=== PATIENT | female | born 1980 | race Caucasian/White ===

== ENCOUNTER 2017-03-08 18:57 | Emergency (ER) | payer OTHER ==
[2017-03-08 19:04] VITALS: BP 124/73; PULSE 93; TEMP 97.5; BMI 38.6
[2017-03-08 20:27] LABS: URINE APPEARANCE CLOUDY; URINE BILIRUBIN NEGATIVE (NEGATIVE); URINE COLOR RED; URINE GLUCOSE (UA) NEGATIVE (NEGATIVE); URINE KETONE NEGATIVE (NEGATIVE); URINE NITRITE NEGATIVE (NEGATIVE); URINE UROBILINOGEN NEGATIVE E.U./dl (0.2-1.0)
[2017-03-08 20:29] LABS: URINE BLOOD 3+ (NEGATIVE); URINE LEUK ESTERASE 1+ (NEGATIVE); URINE PROTEIN 2+ (NEGATIVE)
[2017-03-08 20:41] LABS: URINE BACTERIA FEW /hpf (NONE SEEN); URINE MUCUS FEW; URINE RBC 2603 /hpf (0-3); URINE WBC 273 /hpf (3-5)
--- NOTE | 2017-03-08 20:46 | PDOC ---
History of Present Illness - General Chief Complaint: Vaginal Bleeding Stated Complaint: Vaginal Bleeding Time Seen by Provider: 03/08/17 19:56 History Source: Patient Exam Limitations: No Limitations - History of Present Illness Initial Comments: 03/08/17 22:13 CC: 5 day h/o vaginal bleed Patient is a 36 y.o. female with no PMH who presents to our facility today c/o vaginal bleed. Patient notes she has been placing toilet paper inside her vagina as she is concerned about a smell. Patient brings a transvaginal ultrasound report from an outside institution dated yesterday (03/07) which showed no acute vaginal bleed Timing/Duration: other (2 months) Associated Symptoms: reports: denies symptoms Past History - Past Medical History Allergies/Adverse Reactions: Allergies Allergy/AdvReac Type Severity Reaction Status Date / Time No Known Allergies Allergy Verified 03/08/17 18:59 Home Medications: Ambulatory Orders Vitamins ([facility]) - 1 tab PO DAILY 03/02/14 Sulfamethoxazole/Trimethoprim [Bactrim Ds -] 1 tab PO BID #10 tablet 03/08/17 Sulfamethoxazole/Trimethoprim [Bactrim Ds -] 1 tab PO BID #10 tablet 03/08/17 Asthma: No Cancer: No Cardiac Disorders: No Diabetes: No HTN: No Seizures: No Thyroid Disease: No Other medical history: none - Reproductive History (#): 4 Para: 1 Therapeutic (s) & number: Yes Spontaneous : 2 - Psycho/Social/Smoking Cessation Hx Anxiety: No Suicidal Ideation: No Smoking Status: No Smoking History: Never smoked Have you smoked in the past 12 months: Yes Number of Cigarettes Smoked Daily: 10 Information on smoking cessation initiated: Yes 'Breaking Loose' booklet given: 03/08/17 Hx Alcohol Use: No Drug/Substance Use Hx: No Substance Use Type: None Hx Substance Use Treatment: No Review of Systems - Review of Systems Constitutional: Yes: Other (No chills, fever, malaise, weight loss) HEENTM: Yes: Other (No visual changes, hearing loss, sore throat, difficulty swallowing) Respiratory: Yes: Other (No cough, shortnes sof breath, hemoptysis, wheezing) Cardiac (ROS): Yes: Other (No chest pain, lightheadedness, ) ABD/GI: Yes: Other (No nausea, vomiting, abdominal cramping, tarry stools) : Yes: Other ((+) hematuria - "pinkish" urine; no dysuria, no increased frequency, no flank pain) Psychiatric: Yes: Other (No anxiety, no depression, no suicidial ideations, no appetite changes) All Other Systems: Reviewed and Negative *Physical Exam - Vital Signs Last Vital Signs Temp Pulse Resp BP Pulse Ox 97.5 F L 93 H 18 124/73 100 03/08/17 19:00 03/08/17 19:00 03/08/17 19:00 03/08/17 19:00 03/08/17 19:00 - Physical Exam General Appearance: Yes: Obese HEENT: positive: EOMI, ANATOLIY, Other Neck: positive: Trachea midline, Supple Respiratory/Chest: positive: Lungs Clear, Normal Breath Sounds Cardiovascular: positive: Regular Rhythm, Regular Rate, S1, S2 Gastrointestinal/Abdominal: positive: Normal Bowel Sounds, Soft Musculoskeletal: positive: Normal Inspection, CVA Tenderness Integumentary: positive: Normal Color, Dry, Warm Neurologic: positive: Fully Oriented, Alert ED Treatment Course - ADDITIONAL ORDERS Additional order review: Laboratory Results 03/08/17 03/08/17 20:21 20:19 Urine Color Red Urine Appearance Cloudy Urine pH 5.0 Urine Protein 2+ H Urine Glucose (UA) Negative Urine Ketones Negative Urine Blood 3+ H Urine Nitrite Negative Urine Bilirubin Negative Urine Urobilinogen Negative Ur Leukocyte Esterase 1+ H Urine RBC 2603 Urine WBC 273 Ur Epithelial Cells Many Urine Bacteria Few Urine Mucus Few Urine HCG, Qual Negative Medical Decision Making - Medical Decision Making 03/08/17 22:24 Differential diagnosis included UTI and neprholithiasis. UA showed 3+ blood, and 1+ leukocyte esterase. As patient had a transvaginal ultrasound dated yesterday that showed no active vaginal bleed, patient was discharged with a 5 day course of Bactrim and instructed to follow up with her PCP. Patient was also instructed to discontinue insertion of tissue paper into her vagina *DC/Admit/Observation/Transfer Diagnosis at time of Disposition: Vaginal abrasion - Discharge Dispostion Disposition: HOME Condition at time of disposition: Good Admit: No - Prescriptions Prescriptions: Sulfamethoxazole/Trimethoprim [Bactrim Ds -] 1 tab PO BID #10 tablet Sulfamethoxazole/Trimethoprim [Bactrim Ds -] 1 tab PO BID #10 tablet - Referrals Referrals: Carlo Moody MD [Primary Care Provider] - - Patient Instructions Printed Discharge Instructions: DI for Suture Removal - Attestations Physician Attestion: 03/08/17 21:42 I, Dr. Marisela Jaeger, attest that this document has been prepared under my direction and personally reviewed by me in its entirety. I further attest, that it accurately reflects all work, treatment, procedures and medical decision -making performed by me.
[2017-03-08 21:10] LABS: URINE MARIJUANA THC POSITIVE ng/ml (CUTOFF=50)
== END 2017-03-08 21:45 | disposition home or self-care (01) ==
LOC: JER 18:57
DX: N39.0 Urinary tract infection, site not specified (principal); N31.9 Neuromuscular dysfunction of bladder, unspecified; S30.814A Abrasion of vagina and vulva, initial encounter; X58.XXXA Exposure to other specified factors, initial encounter; Y93.9 Activity, unspecified
CPT/HCPCS: 80307; 81003; 81015; 84703; 99281-25

== ENCOUNTER 2021-09-20 18:10 | Emergency (ER) | payer OTHER ==
[2021-09-20 18:23] VITALS: BP 129/73; PULSE 85; TEMP 98.6; BMI 42.5
[2021-09-20 20:19] LABS: BASO % 0.6 % (0-2.0); EOS % 4.1 % (0-4.5); HEMATOCRIT 31.6 % (32.4-45.2); HEMOGLOBIN 9.5 GM/dL (10.7-15.3); LYMPH % 27.7 % (8-40); MCHC 29.9 g/dl (32.0-36.0); MEAN CELL VOLUME 66.3 fl (80-96); MONO % 6.3 % (3.8-10.2); NEUT % 61.3 % (42.8-82.8); PLATELET COUNT 247 10^3/uL (134-434); RBC 4.77 M/mm3 (3.60-5.2); RDW 19.8 % (11.6-15.6); WHITE BLOOD COUNT 6.4 K/mm3 (4.0-10.0)
[2021-09-20 20:21] LABS: MCH 19.8 pg (25.7-33.7)
[2021-09-20 20:29] LABS: CHLORIDE 108 mmol/L (98-107); SODIUM 139 mmol/L (136-145)
[2021-09-20 20:32] LABS: ALBUMIN 3.8 g/dl (3.4-5.0); ANION GAP 7 MMOL/L (8-16); BLOOD UREA NITROGEN 12.3 mg/dL (7-18); CO2 24 mmol/L (21-32); GLUCOSE,RANDOM 87 mg/dL (74-106)
[2021-09-20 20:35] LABS: CREATININE 0.6 mg/dL (0.55-1.3); SGOT/AST 11 U/L (15-37); SGPT/ALT 19 U/L (13-61)
[2021-09-20 20:37] LABS: ANISOCYTOSIS 2+; BILIRUBIN,TOTAL 0.5 mg/dL (0.2-1); MACROCYTOSIS 0; OVALOCYTE 1+; PLATELET ESTIMATE NORMAL; TEAR DROP CELLS 1+; TOT PROT 7.6 g/dl (6.4-8.2)
[2021-09-20 20:38] LABS: ALK PHOS 71 U/L (45-117)
[2021-09-20 23:22] LABS: INR 1.04 (0.83-1.09)
== END 2021-09-21 01:04 | disposition left against medical advice (07) ==
LOC: JER 18:10
DX: R07.9 Chest pain, unspecified (principal)
CPT/HCPCS: 36415; 71046-TC-FY; 80053; 82550; 84484; 84703; 85025; 85379; 85610; 85730; 93005; 93010; 99285-25

== ENCOUNTER 2021-09-25 19:52 | Emergency (ER) | payer OTHER ==
[2021-09-25 19:58] VITALS: BP 115/72; PULSE 83; TEMP 97.6; BMI 43.9
[2021-09-25] MEDS ORDERED: KETOROLAC TROMETHAMINE 30 MG/1 ML VIAL IM ONE (20:46)
[2021-09-25] MEDS ORDERED: KETOROLAC TROMETHAMINE 30 MG/1 ML VIAL ONE (20:53)
== END 2021-09-25 21:09 | disposition home or self-care (01) ==
LOC: JERFT 19:52
PROC: 3E023GC Introduction of Other Therapeutic Substance into Muscle, Percutaneous Approach (ICD-10-PCS; principal; 2021-09-25)
DX: S09.11XA Strain of muscle and tendon of head, initial encounter (principal); Y99.8 Other external cause status
CPT/HCPCS: 99284-25

== ENCOUNTER 2021-09-26 10:02 | Day surgery (SDC) | payer OTHER ==
[2021-09-26] MEDS ORDERED: FERRIC CARBOXYMALTOSE 750 MG in SODIUM CHLORIDE 250 ML IVPB ONE (11:00)
[2021-09-26 11:48] VITALS: BP 112/65; PULSE 86; TEMP 98
== END 2021-09-26 12:14 | disposition home or self-care (01) ==
LOC: FINFUSION 10:02 → FM/S 10:10 → FINFUSION 12:14
PROVIDERS: ATTEND Nurse Practitioner Family
DX: D50.9 Iron deficiency anemia, unspecified (principal)
CPT/HCPCS: 96365; J1439

== ENCOUNTER 2021-10-03 10:16 | Day surgery (SDC) | payer OTHER ==
[2021-10-03] MEDS ORDERED: FERRIC CARBOXYMALTOSE 750 MG in SODIUM CHLORIDE 250 ML IVPB ONE (11:30)
[2021-10-03 11:33] VITALS: BP 114/62; TEMP 97.8
[2021-10-03 13:01] VITALS: PULSE 64
== END 2021-10-03 12:40 | disposition home or self-care (01) ==
LOC: FINFUSION 10:16 → FM/S 10:18 → FINFUSION 12:40
PROVIDERS: ATTEND Nurse Practitioner Family
PROC: 3E033GC Introduction of Other Therapeutic Substance into Peripheral Vein, Percutaneous Approach (ICD-10-PCS; principal; 2021-10-03)
DX: D50.9 Iron deficiency anemia, unspecified (principal)
CPT/HCPCS: 81025; 96365; J1439

== ENCOUNTER 2022-08-08 15:24 | Emergency (ER) | payer OTHER ==
[2022-08-08 16:37] VITALS: TEMP 97.8; BMI 44.2
[2022-08-08] MEDS ORDERED: ACETAMINOPHEN 325 MG TABLET (FP) PO ONE (18:40)
[2022-08-08] MEDS ORDERED: METOCLOPRAMIDE HCL INJECTION 10 MG/2 ML VIAL IVPUSH ONE (18:40)
[2022-08-08] MEDS ORDERED: LACTATED RINGERS SOLUTION 1000 ML INFUS.BAG IV ONE (18:40)
[2022-08-08] MEDS ORDERED: ACETAMINOPHEN 325 MG TABLET (FP) ONE (18:43)
[2022-08-08] MEDS ORDERED: METOCLOPRAMIDE HCL INJECTION 10 MG/2 ML VIAL ONE (18:43)
[2022-08-08 18:53] LABS: BASO % 0.6 % (0-2.0); HEMATOCRIT 38.7 % (32.4-45.2); HEMOGLOBIN 12.4 GM/dL (10.7-15.3); LYMPH % 26.5 % (8-40); MEAN CELL VOLUME 81.1 fl (80-96); MEAN PLT VOLUME 8.4 fl (7.5-11.1); MONO % 4.6 % (3.8-10.2); NEUT % 63.3 % (42.8-82.8); PLATELET COUNT 222 10^3/uL (134-434); RBC 4.77 M/mm3 (3.60-5.2); RDW 15.8 % (11.6-15.6); WHITE BLOOD COUNT 5.8 K/mm3 (4.0-10.0)
[2022-08-08 18:54] VITALS: BP 127/76; PULSE 86; RESP 18
[2022-08-08 18:58] LABS: HCG,QUALITATIVE URINE Negative
[2022-08-08 18:59] LABS: EPI CELLS 11 /uL (0-25.1); HYALINE CASTS 0 /uL (0-3.1); PH,URINE 6.5 (5.0-8.0); URINE APPEARANCE CLEAR; URINE BACTERIA 89 /uL (0-1359); URINE BILIRUBIN NEGATIVE (NEGATIVE); URINE COLOR YELLOW; URINE GLUCOSE (UA) NEGATIVE (NEGATIVE); URINE KETONE NEGATIVE (NEGATIVE); URINE LEUK ESTERASE NEGATIVE (NEGATIVE); URINE NITRITE NEGATIVE (NEGATIVE); URINE PROTEIN NEGATIVE (NEGATIVE); URINE RBC 7 /uL (0-23.9); URINE UROBILINOGEN 0.2 mg/dL (0.2-1.0); URINE WBC 4 /uL (0-25.8)
[2022-08-08 19:05] LABS: INR 1.04 (0.83-1.09)
[2022-08-08 19:08] LABS: ACTIVATED PTT 31.1 SECONDS (25.2-36.5)
[2022-08-08 20:38] LABS: CALCIUM 9.1 mg/dL (8.5-10.1)
[2022-08-08 20:40] LABS: ALBUMIN 3.8 g/dl (3.4-5.0); BLOOD UREA NITROGEN 11.2 mg/dL (7-18); MAGNESIUM 2.2 mg/dL (1.8-2.4)
[2022-08-08 20:42] LABS: CREATININE 0.6 mg/dL (0.55-1.3)
[2022-08-08 20:44] LABS: BILIRUBIN,TOTAL 0.6 mg/dL (0.2-1); TOT PROT 7.4 g/dl (6.4-8.2)
[2022-08-08] MEDS ORDERED: KETOROLAC TROMETHAMINE 15 MG/ML VIAL IVPUSH ONE (21:13)
[2022-08-08] MEDS ORDERED: LIDOCAINE 5% TOPICAL PATCH TP ONE (21:13)
[2022-08-08] MEDS ORDERED: LIDOCAINE 5% TOPICAL PATCH ONE (21:21)
[2022-08-08] MEDS ORDERED: KETOROLAC TROMETHAMINE 15 MG/ML VIAL ONE (21:22)
[2022-08-08] MEDS ORDERED: LIDOCAINE PATCH REMOVAL MC SCH (22:00)
== END 2022-08-08 22:56 | disposition home or self-care (01) ==
LOC: JER 15:24
PROC: 3E0333Z Introduction of Anti-inflammatory into Peripheral Vein, Percutaneous Approach (ICD-10-PCS; principal; 2022-08-08)
PROC: 3E033GC Introduction of Other Therapeutic Substance into Peripheral Vein, Percutaneous Approach (ICD-10-PCS; 2022-08-08)
DX: R51.9 Headache, unspecified (principal); R07.9 Chest pain, unspecified
CPT/HCPCS: 0241U-QW; 36415; 70450-TC; 71045-TC-FY; 80053; 81003; 83735; 84443; 84484; 84703; 85025; 85610; 85730; 87086; 93005; 93010; 99285-25

== ENCOUNTER 2022-11-10 13:38 | Emergency (ER) | payer OTHER ==
[2022-11-10 13:44] VITALS: BP 118/73; PULSE 86; RESP 18; TEMP 98.1; BMI 44.2
[2022-11-10] MEDS ORDERED: MAG HYDROX/AL HYDROX/SIMETH -MYLANTA- ORAL SUSPENSION PO ONE (14:36)
[2022-11-10] MEDS ORDERED: SODIUM CHLORIDE 0.9% 1000 ML INFUS.BAG IV ONE (14:36)
[2022-11-10] MEDS ORDERED: FAMOTIDINE 20 MG/50 ML IVPB 20 MG/50 ML MG IVPB ONE ×2 (14:36→14:46)
[2022-11-10] MEDS ORDERED: ACETAMINOPHEN 1000 MG/100 ML BAG IVPB ONE (14:36)
[2022-11-10] MEDS ORDERED: ACETAMINOPHEN INJECTION 100 ML IVPB ONE (14:46)
[2022-11-10] MEDS ORDERED: MAG HYDROX/AL HYDROX/SIMETH 30 ML UNIT-DOSE CUP ONE (14:46)
[2022-11-10 15:39] LABS: BASO % 0.9 % (0-2.0); HEMATOCRIT 37.3 % (32.4-45.2); LYMPH % 33.2 % (8-40); MCH 24.1 pg (25.7-33.7); MEAN CELL VOLUME 75.3 fl (80-96); MEAN PLT VOLUME 8.4 fl (7.5-11.1); MONO % 4.5 % (3.8-10.2); NEUT % 56.4 % (42.8-82.8); PLATELET COUNT 262 10^3/uL (134-434); RBC 4.95 M/mm3 (3.60-5.2); RDW 16.8 % (11.6-15.6); WHITE BLOOD COUNT 5.5 K/mm3 (4.0-10.0)
[2022-11-10 15:54] LABS: BLOOD UREA NITROGEN 10.3 mg/dL (7-18); CALCIUM 9.6 mg/dL (8.5-10.1)
[2022-11-10 15:55] LABS: ALBUMIN 4.3 g/dl (3.4-5.0)
[2022-11-10 15:57] LABS: CREATININE 0.7 mg/dL (0.55-1.3)
[2022-11-10 15:59] LABS: BILIRUBIN,TOTAL 1.1 mg/dL (0.2-1); TOT PROT 8.3 g/dl (6.4-8.2)
[2022-11-10 16:53] LABS: EPI CELLS >36 /uL (0-25.1); HYALINE CASTS 1 /uL (0-3.1); PH,URINE 6.5 (5.0-8.0); URINE APPEARANCE CLEAR; URINE BACTERIA 243 /uL (0-1359); URINE BILIRUBIN NEGATIVE (NEGATIVE); URINE COLOR YELLOW; URINE GLUCOSE (UA) NEGATIVE (NEGATIVE); URINE KETONE NEGATIVE (NEGATIVE); URINE LEUK ESTERASE 1+ (NEGATIVE); URINE NITRITE NEGATIVE (NEGATIVE); URINE PROTEIN NEGATIVE (NEGATIVE); URINE RBC 12 /uL (0-23.9); URINE UROBILINOGEN 0.2 mg/dL (0.2-1.0); URINE WBC 46 /uL (0-25.8)
== END 2022-11-10 19:40 | disposition home or self-care (01) ==
LOC: JER 13:38
PROC: 3E033GC Introduction of Other Therapeutic Substance into Peripheral Vein, Percutaneous Approach (ICD-10-PCS; principal; 2022-11-10)
PROC: 3E033NZ Introduction of Analgesics, Hypnotics, Sedatives into Peripheral Vein, Percutaneous Approach (ICD-10-PCS; 2022-11-10)
DX: K80.20 Calculus of gallbladder without cholecystitis without obstruction (principal)
CPT/HCPCS: 36415; 76705-TC; 80053; 81003; 83690; 84703; 85025; 87086; 87186; 99284-25

== ENCOUNTER 2022-11-11 11:07 | Day surgery (SDC) | payer OTHER ==
[2022-11-11 11:34] VITALS: BMI 44.2
[2022-11-11] MEDS ORDERED: ONDANSETRON 4 MG/2 ML VIAL IVPUSH ONE (12:22)
[2022-11-11] MEDS ORDERED: ACETAMINOPHEN 1000 MG/100 ML BAG IVPB ONE (12:22)
[2022-11-11] MEDS ORDERED: FAMOTIDINE 20 MG/50 ML IVPB 20 MG/50 ML MG IVPB ONE ×2 (12:22→13:13)
[2022-11-11] MEDS ORDERED: LACTATED RINGERS SOLUTION 1000 ML INFUS.BAG IV ONE (12:22)
[2022-11-11] MEDS ORDERED: PIPERACILLIN/TAZOB 4.5 GM 4.5 GM in DEXTROSE 5%-WATER 100 ML IVPB ONE (12:23)
[2022-11-11] MEDS ORDERED: ONDANSETRON 4 MG/2 ML VIAL ONE (12:28)
[2022-11-11] MEDS ORDERED: ACETAMINOPHEN INJECTION 100 ML IVPB ONE (12:28)
[2022-11-11] MEDS ORDERED: PIPERACILLIN/TAZOB 4.5 GM 4.5 GM/100 ML BAG IVPB ONE (12:29)
[2022-11-11] MEDS ORDERED: METOCLOPRAMIDE HCL INJECTION 10 MG/2 ML VIAL IVPUSH ONE (12:47)
[2022-11-11] MEDS ORDERED: METOCLOPRAMIDE HCL INJECTION 10 MG/2 ML VIAL ONE (13:12)
[2022-11-11 13:35] LABS: BASO % 0.7 % (0-2.0); EOS % 4.8 % (0-4.5); HEMATOCRIT 37.3 % (32.4-45.2); HEMOGLOBIN 11.9 GM/dL (10.7-15.3); MCH 23.7 pg (25.7-33.7); MEAN CELL VOLUME 74.1 fl (80-96); MEAN PLT VOLUME 8.1 fl (7.5-11.1); MONO % 5.6 % (3.8-10.2); NEUT % 61.9 % (42.8-82.8); PLATELET COUNT 242 10^3/uL (134-434); RBC 5.03 M/mm3 (3.60-5.2); RDW 16.6 % (11.6-15.6); WHITE BLOOD COUNT 5.8 K/mm3 (4.0-10.0)
[2022-11-11 13:39] LABS: URINE APPEARANCE CLEAR; URINE BILIRUBIN NEGATIVE (NEGATIVE); URINE COLOR YELLOW; URINE GLUCOSE (UA) NEGATIVE (NEGATIVE); URINE KETONE NEGATIVE (NEGATIVE); URINE LEUK ESTERASE NEGATIVE (NEGATIVE); URINE NITRITE NEGATIVE (NEGATIVE); URINE PROTEIN NEGATIVE (NEGATIVE); URINE UROBILINOGEN 0.2 mg/dL (0.2-1.0)
[2022-11-11 13:51] LABS: HCG,QUALITATIVE URINE Negative
[2022-11-11 13:55] LABS: ALBUMIN 4.3 g/dl (3.4-5.0)
[2022-11-11 13:56] LABS: CALCIUM 9.3 mg/dL (8.5-10.1)
[2022-11-11 13:57] LABS: BLOOD UREA NITROGEN 10.7 mg/dL (7-18); MAGNESIUM 2.4 mg/dL (1.8-2.4)
[2022-11-11] MEDS ORDERED: ONDANSETRON 4 MG/2 ML VIAL IVPUSH PRN (13:59)
[2022-11-11 14:00] LABS: CREATININE 0.6 mg/dL (0.55-1.3)
[2022-11-11 14:01] LABS: TOT PROT 8.1 g/dl (6.4-8.2)
[2022-11-11] MEDS: D5-1/2NS+20 MEQ KCL - 20 MEQ/1,000 ML INFUS.BAG IV SCH (17:46)
[2022-11-11] MEDS ORDERED: LORazepam 2 MG/ML SDV VIAL IVPUSH ONE (18:28)
[2022-11-12] MEDS: D5-1/2NS+20 MEQ KCL - 20 MEQ/1,000 ML INFUS.BAG IV SCH (06:20)
[2022-11-12 08:50] LABS: BASO % 0.9 % (0-2.0); EOS % 5.9 % (0-4.5); HEMATOCRIT 35.2 % (32.4-45.2); HEMOGLOBIN 11.3 GM/dL (10.7-15.3); LYMPH % 36.1 % (8-40); MCH 24.2 pg (25.7-33.7); MEAN CELL VOLUME 75.6 fl (80-96); MEAN PLT VOLUME 8.3 fl (7.5-11.1); MONO % 5.9 % (3.8-10.2); NEUT % 51.2 % (42.8-82.8); PLATELET COUNT 241 10^3/uL (134-434); RBC 4.65 M/mm3 (3.60-5.2); WHITE BLOOD COUNT 4.8 K/mm3 (4.0-10.0)
[2022-11-12 09:00] LABS: INR 1.16 (0.83-1.09); PROTHROMBIN TIME (PATIENT) 13.4 SEC (9.7-13.0)
[2022-11-12 09:14] LABS: CALCIUM 8.8 mg/dL (8.5-10.1)
[2022-11-12 09:15] LABS: ALBUMIN 3.8 g/dl (3.4-5.0); BLOOD UREA NITROGEN 7.4 mg/dL (7-18)
[2022-11-12 09:18] LABS: CREATININE 0.6 mg/dL (0.55-1.3)
[2022-11-12 09:19] LABS: TOT PROT 7.4 g/dl (6.4-8.2)
[2022-11-12 09:20] LABS: BILIRUBIN,TOTAL 0.9 mg/dL (0.2-1)
[2022-11-12] MEDS ORDERED: PANTOPRAZOLE SODIUM 40 MG VIAL IVPUSH SCH (10:00)
[2022-11-12] MEDS ORDERED: BUPIVACAINE HCL/PF 0.5% (5MG/ML) 10 ML VIAL ONE (10:03)
[2022-11-12] MEDS ORDERED: SUCCINYLCHOLINE CHLORIDE 200 MG/10 ML SYRINGE ONE (10:34)
[2022-11-12] MEDS ORDERED: LIDOCAINE HCL/PF 2% SDV 5ML VIAL ONE (10:34)
[2022-11-12] MEDS ORDERED: ROCURONIUM BROMIDE 50 MG/5 ML SYRINGE ONE (10:34)
[2022-11-12] MEDS ORDERED: PROPOFOL 20 ML ONE (10:34)
[2022-11-12] MEDS ORDERED: MIDAZOLAM HCL 2 MG/2 ML SINGLE DOSE VIAL ONE (10:35)
[2022-11-12] MEDS ORDERED: ceFAZolin SODIUM 1 GM VIAL ONE (11:00)
[2022-11-12] MEDS ORDERED: DEXAMETHASONE SOD PHOSPHATE 4 MG/1 ML VIAL ONE (11:00)
[2022-11-12] MEDS ORDERED: ceFAZolin SODIUM 1 GM VIAL IVPB ONE ×2 (11:05)
[2022-11-12] MEDS ORDERED: ONDANSETRON 4 MG/2 ML VIAL ONE ×2 (11:56→13:03)
[2022-11-12] MEDS ORDERED: KETOROLAC TROMETHAMINE 30 MG/1 ML VIAL ONE (11:56)
[2022-11-12] MEDS ORDERED: GLYCOPYRROLATE 0.2 MG/1 ML VIAL ONE (12:15)
[2022-11-12] MEDS ORDERED: NEOSTIGMINE METHYLSULFATE 0.5 MG/1 ML - 10 ML MDV ONE (12:15)
[2022-11-12] MEDS ORDERED: BUPIVACAINE HCL/PF 0.5% (5MG/ML) 10 ML VIAL IJ ONE (12:31)
[2022-11-12] MEDS ORDERED: PROMETHAZINE HCL 25 MG/1 ML VIAL IVPB PRN ×2 (12:57→14:07)
[2022-11-12] MEDS ORDERED: ONDANSETRON 4 MG/2 ML VIAL IVPUSH PRN ×2 (12:57→14:07)
[2022-11-12] MEDS ORDERED: ACETAMINOPHEN 1000 MG/100 ML BAG IVPB ONE ×2 (12:58→13:10)
[2022-11-12] MEDS ORDERED: LACTATED RINGERS SOLUTION 1,000 ML IV SCH (13:00)
[2022-11-12] MEDS ORDERED: ACETAMINOPHEN INJECTION 100 ML IVPB ONE (13:03)
[2022-11-12] MEDS: SODIUM CHLORIDE 1,000 ML IV SCH (15:34)
[2022-11-12] MEDS: ONDANSETRON 4 MG/2 ML VIAL IVPUSH PRN ×2 (18:04→23:14)
[2022-11-12] MEDS: KETOROLAC TROMETHAMINE 30 MG/1 ML VIAL IVPUSH SCH (18:04)
[2022-11-12] MEDS: ACETAMINOPHEN 1000 MG/100 ML BAG IVPB SCH (20:33)
[2022-11-13 00:31] VITALS: RESP 18
[2022-11-13] MEDS ORDERED: oxyCODONE HCL 5 MG TABLET PO ONE (01:30)
[2022-11-13] MEDS: D5-1/2NS+20 MEQ KCL - 20 MEQ/1,000 ML INFUS.BAG IV SCH (03:50)
[2022-11-13] MEDS: ACETAMINOPHEN 1000 MG/100 ML BAG IVPB SCH ×2 (05:39→07:50)
[2022-11-13] MEDS: KETOROLAC TROMETHAMINE 30 MG/1 ML VIAL IVPUSH SCH ×2 (05:39→10:53)
[2022-11-13] MEDS: DOCUSATE SODIUM 100 MG CAPSULE (FP) PO SCH ×2 (10:53→22:25)
[2022-11-13] MEDS: PANTOPRAZOLE SODIUM 40 MG VIAL IVPUSH SCH (10:53)
[2022-11-13] MEDS: SODIUM CHLORIDE 1,000 ML IV SCH (15:10)
[2022-11-13] MEDS: SIMETHICONE 80 MG TAB.CHEW (FP) PO PRN (17:43)
[2022-11-13] MEDS ORDERED: ACETAMINOPHEN 1000 MG/100 ML BAG IVPB ONE (19:58)
[2022-11-14] MEDS: oxyCODONE HCL 5 MG TABLET PO PRN ×2 (00:54→08:16)
[2022-11-14] MEDS: SIMETHICONE 80 MG TAB.CHEW (FP) PO PRN (08:56)
[2022-11-14] MEDS: DOCUSATE SODIUM 100 MG CAPSULE (FP) PO SCH (08:59)
[2022-11-14] MEDS: PANTOPRAZOLE SODIUM 40 MG VIAL IVPUSH SCH (09:13)
[2022-11-14 10:18] VITALS: BP 139/81; PULSE 89; TEMP 98.7
== END 2022-11-14 12:00 | disposition home or self-care (01) ==
LOC: JER 11:07 → UNDOADMOB 13:25 → INTOOBSV 13:25 → JERBED 13:25 → UNDOADMOB 16:00 → JERBED 16:00 → J6S 21:00 → JERBED 21:00 → JASUSAT 11-12 10:17 → J6S 11-12 10:38 → JASUSAT 11-14 12:00
PROVIDERS: ATTEND Family Medicine
PROC: 0FT44ZZ Resection of Gallbladder, Percutaneous Endoscopic Approach (ICD-10-PCS; principal; 2022-11-12 12:00)
DX: K80.00 Calculus of gallbladder with acute cholecystitis without obstruction (principal)
CPT/HCPCS: 36415; 71046-TC-FY; 80053; 81003; 83605; 83690; 83735; 84703; 85025; 85610; 86850; 86900; 86901; 88304-TC; 93005; 93010; 94010; 94760; 99285-25; C9803-CS; U0003; U0005

== ENCOUNTER 2022-11-28 12:25 | Emergency (ER) | payer OTHER ==
[2022-11-28 12:28] VITALS: RESP 18; BMI 44.2
[2022-11-28] MEDS ORDERED: ACETAMINOPHEN 1000 MG/100 ML BAG IVPB ONE (12:58)
[2022-11-28] MEDS ORDERED: FAMOTIDINE 20 MG/50 ML IVPB 20 MG/50 ML MG IVPB ONE ×2 (12:58→13:12)
[2022-11-28] MEDS ORDERED: SODIUM CHLORIDE 0.9% 500 ML INFUS.BAG IV ONE (12:58)
[2022-11-28] MEDS ORDERED: ONDANSETRON 4 MG/2 ML VIAL IVPUSH ONE (12:58)
[2022-11-28] MEDS ORDERED: MAG HYDROX/AL HYDROX/SIMETH 30 ML UNIT-DOSE CUP PO ONE (12:58)
[2022-11-28] MEDS ORDERED: ACETAMINOPHEN INJECTION 100 ML IVPB ONE (13:11)
[2022-11-28] MEDS ORDERED: ONDANSETRON 4 MG/2 ML VIAL ONE (13:12)
[2022-11-28] MEDS ORDERED: MAG HYDROX/AL HYDROX/SIMETH 30 ML UNIT-DOSE CUP ONE (13:12)
[2022-11-28 13:57] LABS: BASO % 0.7 % (0-2.0); EOS % 4.2 % (0-4.5); HEMATOCRIT 33.8 % (32.4-45.2); HEMOGLOBIN 11.7 GM/dL (10.7-15.3); LYMPH % 29.7 % (8-40); MCH 25.5 pg (25.7-33.7); MCHC 34.7 g/dl (32.0-36.0); MEAN CELL VOLUME 73.6 fl (80-96); MEAN PLT VOLUME 9.3 fl (7.5-11.1); MONO % 6.3 % (3.8-10.2); NEUT % 59.1 % (42.8-82.8); PLATELET COUNT 231 10^3/uL (134-434); RBC 4.59 M/mm3 (3.60-5.2); RDW 18.3 % (11.6-15.6); WHITE BLOOD COUNT 5.4 K/mm3 (4.0-10.0)
[2022-11-28 14:04] LABS: PH,URINE 5.5 (5.0-8.0); URINE APPEARANCE CLEAR; URINE BILIRUBIN NEGATIVE (NEGATIVE); URINE COLOR YELLOW; URINE GLUCOSE (UA) NEGATIVE (NEGATIVE); URINE KETONE NEGATIVE (NEGATIVE); URINE LEUK ESTERASE NEGATIVE (NEGATIVE); URINE NITRITE NEGATIVE (NEGATIVE); URINE PROTEIN NEGATIVE (NEGATIVE); URINE UROBILINOGEN 0.2 mg/dL (0.2-1.0)
[2022-11-28 14:09] LABS: BLOOD UREA NITROGEN 13.2 mg/dL (7-18); CALCIUM 9.9 mg/dL (8.5-10.1); MAGNESIUM 2.4 mg/dL (1.8-2.4)
[2022-11-28 14:10] LABS: ALBUMIN 3.9 g/dl (3.4-5.0)
[2022-11-28 14:12] LABS: CREATININE 0.6 mg/dL (0.55-1.3)
[2022-11-28 14:14] LABS: BILIRUBIN,TOTAL 0.8 mg/dL (0.2-1); TOT PROT 7.7 g/dl (6.4-8.2)
[2022-11-28 16:53] VITALS: BP 136/72; PULSE 80; TEMP 98.3
== END 2022-11-28 16:53 | disposition home or self-care (01) ==
LOC: JER 12:25
PROC: 3E033GC Introduction of Other Therapeutic Substance into Peripheral Vein, Percutaneous Approach (ICD-10-PCS; principal; 2022-11-28)
PROC: 3E033NZ Introduction of Analgesics, Hypnotics, Sedatives into Peripheral Vein, Percutaneous Approach (ICD-10-PCS; 2022-11-28)
PROC: 3E033GC Introduction of Other Therapeutic Substance into Peripheral Vein, Percutaneous Approach (ICD-10-PCS; 2022-11-28)
DX: R10.11 Right upper quadrant pain (principal)
CPT/HCPCS: 36415; 74177-TC; 80053; 81003; 83690; 83735; 84703; 85025; 87086; 93005; 93010; 99285-25; Q9967

== ENCOUNTER 2022-12-06 12:53 | Emergency (ER) | payer OTHER ==
[2022-12-06 13:02] VITALS: BP 117/70; PULSE 80; RESP 18; TEMP 97.9; BMI 44.2
[2022-12-06] MEDS ORDERED: ACETAMINOPHEN 1000 MG/100 ML BAG IVPB ONE (13:38)
[2022-12-06] MEDS ORDERED: SODIUM CHLORIDE 0.9% 500 ML INFUS.BAG IV ONE (13:38)
[2022-12-06] MEDS ORDERED: ONDANSETRON 4 MG/2 ML VIAL IVPUSH ONE (13:38)
[2022-12-06] MEDS ORDERED: ONDANSETRON 4 MG/2 ML VIAL ONE (13:45)
[2022-12-06] MEDS ORDERED: ACETAMINOPHEN INJECTION 100 ML IVPB ONE (13:45)
[2022-12-06 14:49] LABS: BASO % 0.5 % (0-2.0); EOS % 3.8 % (0-4.5); HEMATOCRIT 35.1 % (32.4-45.2); HEMOGLOBIN 11.3 GM/dL (10.7-15.3); LYMPH % 35.8 % (8-40); MCHC 32.2 g/dl (32.0-36.0); MEAN CELL VOLUME 74.6 fl (80-96); MEAN PLT VOLUME 8.9 fl (7.5-11.1); MONO % 6.2 % (3.8-10.2); NEUT % 53.7 % (42.8-82.8); PLATELET COUNT 189 10^3/uL (134-434); RDW 18.2 % (11.6-15.6); WHITE BLOOD COUNT 3.3 K/mm3 (4.0-10.0)
[2022-12-06 14:59] LABS: EPI CELLS >36 /uL (0-25.1); HYALINE CASTS 1 /uL (0-3.1); PH,URINE 5.5 (5.0-8.0); URINE APPEARANCE CLOUDY; URINE BACTERIA 47 /uL (0-1359); URINE BILIRUBIN NEGATIVE (NEGATIVE); URINE COLOR YELLOW; URINE GLUCOSE (UA) NEGATIVE (NEGATIVE); URINE KETONE NEGATIVE (NEGATIVE); URINE LEUK ESTERASE 1+ (NEGATIVE); URINE NITRITE NEGATIVE (NEGATIVE); URINE PROTEIN 1+ (NEGATIVE); URINE RBC 3940 /uL (0-23.9); URINE UROBILINOGEN 0.2 mg/dL (0.2-1.0); URINE WBC 67 /uL (0-25.8)
[2022-12-06 15:19] LABS: CALCIUM 9.3 mg/dL (8.5-10.1)
[2022-12-06 15:20] LABS: ALBUMIN 3.8 g/dl (3.4-5.0); BLOOD UREA NITROGEN 9.4 mg/dL (7-18)
[2022-12-06 15:23] LABS: CREATININE 0.6 mg/dL (0.55-1.3)
[2022-12-06 15:25] LABS: BILIRUBIN,TOTAL 0.7 mg/dL (0.2-1); TOT PROT 7.8 g/dl (6.4-8.2)
== END 2022-12-06 19:11 | disposition home or self-care (01) ==
LOC: JER 12:53
PROC: 3E033NZ Introduction of Analgesics, Hypnotics, Sedatives into Peripheral Vein, Percutaneous Approach (ICD-10-PCS; principal; 2022-12-06)
PROC: 3E033GC Introduction of Other Therapeutic Substance into Peripheral Vein, Percutaneous Approach (ICD-10-PCS; 2022-12-06)
DX: I72.8 Aneurysm of other specified arteries (principal); R11.2 Nausea with vomiting, unspecified; R10.12 Left upper quadrant pain
CPT/HCPCS: 36415; 74174-TC; 80053; 81003; 83690; 84703; 85025; 87086; 99285-25

== ENCOUNTER 2022-12-21 00:15 | Emergency (ER) | payer OTHER ==
[2022-12-21 00:48] VITALS: BP 114/65; PULSE 68; RESP 18; TEMP 98; BMI 44.2
[2022-12-21 02:15] LABS: THROAT:GRP A STREP NOT DETECTED (NOTDETECTED)
== END 2022-12-21 02:56 | disposition home or self-care (01) ==
LOC: JER 00:15
DX: R05.1 Acute cough (principal); K21.9 Gastro-esophageal reflux disease without esophagitis; Z20.822 Contact with and (suspected) exposure to COVID-19
CPT/HCPCS: 0241U-QW; 71046-TC-FY; 87070; 87651; 99284-25

== ENCOUNTER 2023-01-08 10:15 | Emergency (ER) | payer OTHER ==
[2023-01-08 10:51] VITALS: BP 104/66; PULSE 85; RESP 16; TEMP 98.6; BMI 45.3
[2023-01-08] MEDS ORDERED: FAMOTIDINE 10 MG TABLET PO ONE (11:38)
[2023-01-08] MEDS ORDERED: MAG HYDROX/AL HYDROX/SIMETH 30 ML UNIT-DOSE CUP PO ONE (11:38)
[2023-01-08] MEDS ORDERED: FAMOTIDINE 10 MG TABLET ONE (11:55)
[2023-01-08] MEDS ORDERED: MAG HYDROX/AL HYDROX/SIMETH 30 ML UNIT-DOSE CUP ONE (11:56)
[2023-01-08 12:56] LABS: BASO % 0.6 % (0-2.0); EOS % 2.3 % (0-4.5); HEMATOCRIT 32.6 % (32.4-45.2); HEMOGLOBIN 10.5 GM/dL (10.7-15.3); LYMPH % 35.2 % (8-40); MCH 23.7 pg (25.7-33.7); MCHC 32.2 g/dl (32.0-36.0); MEAN CELL VOLUME 73.7 fl (80-96); MEAN PLT VOLUME 8.8 fl (7.5-11.1); MONO % 8.5 % (3.8-10.2); NEUT % 53.4 % (42.8-82.8); PLATELET COUNT 192 10^3/uL (134-434); RBC 4.42 M/mm3 (3.60-5.2); RDW 17.4 % (11.6-15.6); WHITE BLOOD COUNT 3.4 K/mm3 (4.0-10.0)
[2023-01-08 13:10] LABS: POTASSIUM 4.6 mmol/L (3.5-5.1)
[2023-01-08 13:12] LABS: CALCIUM 9.5 mg/dL (8.5-10.1)
[2023-01-08 13:13] LABS: ALBUMIN 3.8 g/dl (3.4-5.0); BLOOD UREA NITROGEN 9.4 mg/dL (7-18)
[2023-01-08 13:16] LABS: CREATININE 0.6 mg/dL (0.55-1.3)
[2023-01-08 13:17] LABS: TOT PROT 7.5 g/dl (6.4-8.2)
[2023-01-08 13:18] LABS: BILIRUBIN,TOTAL 0.7 mg/dL (0.2-1)
== END 2023-01-08 14:20 | disposition home or self-care (01) ==
LOC: JER 10:15
DX: R10.13 Epigastric pain (principal); R19.5 Other fecal abnormalities; R14.0 Abdominal distension (gaseous); R12 Heartburn
CPT/HCPCS: 36415; 80053; 82272; 83690; 85025; 99283-25

== ENCOUNTER 2023-01-23 11:24 | Day surgery (SDC) | payer OTHER ==
[2023-01-23] MEDS ORDERED: FERRIC CARBOXYMALTOSE 750 MG in SODIUM CHLORIDE 250 ML IVPB SCH (11:30)
[2023-01-23 13:25] VITALS: BP 101/61; PULSE 59; RESP 14; TEMP 98.7
== END 2023-01-23 13:25 | disposition home or self-care (01) ==
LOC: FINFUSION 11:24 → FM/S 11:25 → FINFUSION 13:25
PROVIDERS: ATTEND Family Medicine
PROC: 3E033GC Introduction of Other Therapeutic Substance into Peripheral Vein, Percutaneous Approach (ICD-10-PCS; principal; 2023-01-23)
DX: D50.9 Iron deficiency anemia, unspecified (principal)
CPT/HCPCS: 96365; J1439

== ENCOUNTER 2023-01-30 11:32 | Day surgery (SDC) | payer OTHER ==
[2023-01-30] MEDS ORDERED: FERRIC CARBOXYMALTOSE 750 MG in SODIUM CHLORIDE 250 ML IVPB SCH (12:00)
[2023-01-30 14:17] VITALS: BP 112/67; PULSE 62; RESP 18; TEMP 98.2
== END 2023-01-30 13:25 | disposition home or self-care (01) ==
LOC: FINFUSION 11:32 → FM/S 11:33 → FINFUSION 13:25
PROVIDERS: ATTEND Family Medicine
PROC: 3E033GC Introduction of Other Therapeutic Substance into Peripheral Vein, Percutaneous Approach (ICD-10-PCS; principal; 2023-01-30)
DX: D50.9 Iron deficiency anemia, unspecified (principal)
CPT/HCPCS: 96365; J1439

== ENCOUNTER 2023-07-27 16:40 | Emergency (ER) | payer OTHER ==
[2023-07-27 16:55] VITALS: BMI 42.5
[2023-07-27] MEDS ORDERED: METOCLOPRAMIDE HCL INJECTION 10 MG/2 ML VIAL IVPUSH ONE (17:32)
[2023-07-27] MEDS ORDERED: METOCLOPRAMIDE HCL INJECTION 10 MG/2 ML VIAL ONE (17:45)
[2023-07-27 18:00] LABS: BASO % 0.3 % (0-2.0); EOS % 1.4 % (0-4.5); HEMATOCRIT 42.6 % (32.4-45.2); HEMOGLOBIN 14.4 GM/dL (10.7-15.3); MCH 27.6 pg (25.7-33.7); MCHC 33.8 g/dl (32.0-36.0); MEAN CELL VOLUME 81.9 fl (80-96); MONO % 4.9 % (3.8-10.2); NEUT % 79.4 % (42.8-82.8); PLATELET COUNT 210 10^3/uL (134-434); RDW 15.1 % (11.6-15.6); WHITE BLOOD COUNT 5.5 K/mm3 (4.0-10.0)
[2023-07-27 18:10] VITALS: RESP 20; TEMP 98.9
[2023-07-27 18:46] LABS: POTASSIUM 3.8 mmol/L (3.5-5.1)
[2023-07-27 18:49] LABS: CALCIUM 8.9 mg/dL (8.5-10.1)
[2023-07-27 18:50] LABS: BLOOD UREA NITROGEN 13.8 mg/dL (7-18)
[2023-07-27 18:52] LABS: CREATININE 0.6 mg/dL (0.55-1.3)
[2023-07-27 18:54] LABS: BILIRUBIN,TOTAL 1.9 mg/dL (0.2-1)
== END 2023-07-27 20:21 | disposition home or self-care (01) ==
LOC: JER 16:40
PROC: 3E033NZ Introduction of Analgesics, Hypnotics, Sedatives into Peripheral Vein, Percutaneous Approach (ICD-10-PCS; principal; 2023-07-27)
DX: R11.10 Vomiting, unspecified (principal); K52.9 Noninfective gastroenteritis and colitis, unspecified; R74.01 Elevation of levels of liver transaminase levels; Z20.822 Contact with and (suspected) exposure to COVID-19
CPT/HCPCS: 0241U-QW; 36415; 80053; 82150; 83605; 83690; 84703; 85025; 96374; 99284-25

== ENCOUNTER 2023-08-27 12:44 | Emergency (ER) | payer OTHER ==
[2023-08-27 13:04] VITALS: BP 113/74; PULSE 87; RESP 18; TEMP 99.3; BMI 42.5
== END 2023-08-27 15:57 | disposition home or self-care (01) ==
LOC: JERFT 12:44
DX: M54.50 Low back pain, unspecified (principal); M79.604 Pain in right leg; M79.605 Pain in left leg; Z20.822 Contact with and (suspected) exposure to COVID-19
CPT/HCPCS: 0241U-QW; 99283-25

== ENCOUNTER 2023-09-15 14:09 | Emergency (ER) | payer OTHER ==
[2023-09-15 14:19] VITALS: BP 137/67; PULSE 87; RESP 17; TEMP 98.9; BMI 42.5
[2023-09-15] MEDS ORDERED: KETOROLAC TROMETHAMINE 30 MG/1 ML VIAL IM ONE (16:27)
[2023-09-15] MEDS ORDERED: KETOROLAC TROMETHAMINE 30 MG/1 ML VIAL ONE (16:44)
== END 2023-09-15 18:44 | disposition home or self-care (01) ==
LOC: JERFT 14:09
PROC: 3E0233Z Introduction of Anti-inflammatory into Muscle, Percutaneous Approach (ICD-10-PCS; principal; 2023-09-15)
DX: M25.571 Pain in right ankle and joints of right foot (principal); M67.90 Unspecified disorder of synovium and tendon, unspecified site; X50.1XXA Overexertion from prolonged static or awkward postures, initial encounter; Y92.009 Unspecified place in unspecified non-institutional (private) residence as the place of occurrence of the external cause; Y93.01 Activity, walking, marching and hiking
CPT/HCPCS: 73610-TC-RT-FY; 73630-TC-RT-FY; 99284-25

== ENCOUNTER 2023-09-22 11:01 | Emergency (ER) | payer OTHER ==
[2023-09-22 11:46] VITALS: BP 112/64; PULSE 95; RESP 18; TEMP 98; BMI 43.0
== END 2023-09-22 15:48 | disposition home or self-care (01) ==
LOC: JER 11:01
DX: R20.0 Anesthesia of skin (principal); M79.604 Pain in right leg
CPT/HCPCS: 93971-TC; 99283-25

== ENCOUNTER 2023-10-13 12:03 | Emergency (ER) | payer OTHER ==
[2023-10-13 12:12] VITALS: BP 115/79; PULSE 92; RESP 18; TEMP 99.1; BMI 43.0
== END 2023-10-13 13:08 | disposition left against medical advice (07) ==
LOC: FER 12:03
DX: M79.602 Pain in left arm (principal)
CPT/HCPCS: 99281-25

== ENCOUNTER 2023-10-17 17:56 | Emergency (ER) | payer OTHER ==
[2023-10-17 18:01] VITALS: BP 127/84; PULSE 82; RESP 18; TEMP 97.4; BMI 43.0
[2023-10-17] MEDS ORDERED: KETOROLAC TROMETHAMINE 15 MG/ML VIAL ONE (19:21)
[2023-10-17] MEDS ORDERED: LIDOCAINE 4% PATCH TP ONE (19:21)
[2023-10-17] MEDS: LIDOCAINE 4% PATCH TP ONE (19:29)
[2023-10-17] MEDS: KETOROLAC TROMETHAMINE 15 MG/ML VIAL IM ONE (19:30)
[2023-10-17] MEDS ORDERED: LIDOCAINE PATCH REMOVAL MC SCH (22:00)
== END 2023-10-17 21:06 | disposition home or self-care (01) ==
LOC: JER 17:56
PROC: 3E0233Z Introduction of Anti-inflammatory into Muscle, Percutaneous Approach (ICD-10-PCS; principal; 2023-10-17)
DX: M54.50 Low back pain, unspecified (principal); R22.43 Localized swelling, mass and lump, lower limb, bilateral; W19.XXXA Unspecified fall, initial encounter; Z20.822 Contact with and (suspected) exposure to COVID-19
CPT/HCPCS: 0241U-QW; 99284-25

== ENCOUNTER 2024-01-18 19:25 | Emergency (ER) | payer OTHER ==
[2024-01-18 19:42] VITALS: BP 129/63; PULSE 87; RESP 18; TEMP 98.8; BMI 42.0
[2024-01-18] MEDS ORDERED: ONDANSETRON 4 MG TABLET PO ONE (21:07)
[2024-01-18] MEDS ORDERED: FAMOTIDINE 20 MG/50 ML IVPB 20 MG/50 ML MG IVPB ONE (21:24)
[2024-01-18] MEDS ORDERED: ONDANSETRON 4 MG/2 ML VIAL ONE (21:24)
[2024-01-18] MEDS: ONDANSETRON 4 MG/2 ML VIAL IVPB ONE (21:31)
[2024-01-18] MEDS: FAMOTIDINE 20 MG/50 ML IVPB 20 MG/50 ML MG IVPB SCH (21:31)
[2024-01-18 21:50] LABS: BASO % 0.3 % (0-2.0); HEMATOCRIT 34.9 % (32.4-45.2); HEMOGLOBIN 11.6 GM/dL (10.7-15.3); MCH 26.9 pg (25.7-33.7); MCHC 33.2 g/dl (32.0-36.0); MEAN CELL VOLUME 81.1 fl (80-96); MEAN PLT VOLUME 8.1 fl (7.5-11.1); MONO % 6.4 % (3.8-10.2); NEUT % 63.3 % (42.8-82.8); PH,URINE 6.5 (5.0-8.0); PLATELET COUNT 222 10^3/uL (134-434); RDW 15.1 % (11.6-15.6); URINE APPEARANCE CLEAR; URINE BILIRUBIN NEGATIVE (NEGATIVE); URINE COLOR YELLOW; URINE GLUCOSE (UA) NEGATIVE (NEGATIVE); URINE KETONE NEGATIVE (NEGATIVE); URINE LEUK ESTERASE NEGATIVE (NEGATIVE); URINE NITRITE NEGATIVE (NEGATIVE); URINE PROTEIN NEGATIVE (NEGATIVE); URINE UROBILINOGEN 0.2 mg/dL (0.2-1.0); WHITE BLOOD COUNT 5.4 K/mm3 (4.0-10.0)
[2024-01-18 21:54] LABS: HCG,QUALITATIVE URINE Negative
[2024-01-18 22:08] LABS: POTASSIUM 4.2 mmol/L (3.5-5.1)
[2024-01-18 22:10] LABS: ALBUMIN 3.8 g/dl (3.4-5.0); CALCIUM 9.3 mg/dL (8.5-10.1)
[2024-01-18 22:13] LABS: CREATININE 0.7 mg/dL (0.55-1.3)
[2024-01-18 22:15] LABS: BILIRUBIN,TOTAL 1.1 mg/dL (0.2-1); TOT PROT 7.9 g/dl (6.4-8.2)
== END 2024-01-18 22:49 | disposition home or self-care (01) ==
LOC: JER 19:25
PROC: 3E033GC Introduction of Other Therapeutic Substance into Peripheral Vein, Percutaneous Approach (ICD-10-PCS; principal; 2024-01-18)
DX: K29.00 Acute gastritis without bleeding (principal); R10.13 Epigastric pain; R11.0 Nausea; R42 Dizziness and giddiness
CPT/HCPCS: 36415; 71046-TC-FY; 80053; 81003; 83690; 84484; 84703; 85025; 93005; 93010; 96374; 99285-25

== ENCOUNTER 2024-01-24 22:00 | Emergency (ER) | payer OTHER ==
[2024-01-24 22:08] VITALS: BP 121/83; PULSE 83; RESP 20; TEMP 97.6; BMI 43.3
[2024-01-24] MEDS ORDERED: MAG HYDROX/AL HYDROX/SIMETH 30 ML UNIT-DOSE CUP ONE (23:05)
[2024-01-24] MEDS ORDERED: ONDANSETRON 4 MG/2 ML VIAL ONE (23:05)
[2024-01-24] MEDS ORDERED: FAMOTIDINE 20 MG/50 ML IVPB 20 MG/50 ML MG IVPB ONE (23:05)
[2024-01-24] MEDS ORDERED: SUCRALFATE 1 GM TABLET (FP) ONE (23:05)
[2024-01-24 23:07] LABS: BASO % 0.5 % (0-2.0); EOS % 3.9 % (0-4.5); HEMATOCRIT 34.6 % (32.4-45.2); HEMOGLOBIN 11.6 GM/dL (10.7-15.3); LYMPH % 29.3 % (8-40); MCH 27.1 pg (25.7-33.7); MCHC 33.5 g/dl (32.0-36.0); MEAN CELL VOLUME 80.8 fl (80-96); MEAN PLT VOLUME 8.2 fl (7.5-11.1); MONO % 7.9 % (3.8-10.2); NEUT % 58.4 % (42.8-82.8); PLATELET COUNT 219 10^3/uL (134-434); RBC 4.29 M/mm3 (3.60-5.2); RDW 14.8 % (11.6-15.6); WHITE BLOOD COUNT 5.1 K/mm3 (4.0-10.0)
[2024-01-24 23:16] LABS: POTASSIUM 3.7 mmol/L (3.5-5.1)
[2024-01-24 23:18] LABS: CALCIUM 9.2 mg/dL (8.5-10.1)
[2024-01-24 23:19] LABS: BLOOD UREA NITROGEN 9.2 mg/dL (7-18)
[2024-01-24 23:21] LABS: CREATININE 0.7 mg/dL (0.55-1.3)
[2024-01-24 23:23] LABS: BILIRUBIN,TOTAL 1.2 mg/dL (0.2-1)
[2024-01-24] MEDS: SODIUM CHLORIDE 0.9% 500 ML INFUS.BAG IV ONE (23:24)
[2024-01-24] MEDS: MAG HYDROX/AL HYDROX/SIMETH 30 ML UNIT-DOSE CUP PO ONE (23:24)
[2024-01-24] MEDS: ONDANSETRON 4 MG/2 ML VIAL IVPUSH ONE (23:24)
[2024-01-25] MEDS: SUCRALFATE 1 GM/10 ML UNIT DOSE CUPS PO ONE (00:02)
[2024-01-25] MEDS ORDERED: FAMOTIDINE 20 MG/50 ML IVPB 20 MG/50 ML MG IVPB ONE ×2 (22:47→23:57)
[2024-01-25] MEDS ORDERED: SUCRALFATE 1 GM/10 ML UNIT DOSE CUPS PO ONE (22:48)
== END 2024-01-25 00:33 | disposition home or self-care (01) ==
LOC: JER 22:00
PROC: 3E033GC Introduction of Other Therapeutic Substance into Peripheral Vein, Percutaneous Approach (ICD-10-PCS; principal; 2024-01-24)
DX: R10.9 Unspecified abdominal pain (principal); R19.7 Diarrhea, unspecified; R11.0 Nausea; R63.0 Anorexia
CPT/HCPCS: 36415; 80053; 83690; 84703; 85025; 86140; 99284-25

== ENCOUNTER 2024-05-28 00:52 | Emergency (ER) | payer OTHER ==
[2024-05-28 01:01] VITALS: BP 106/58; PULSE 70; RESP 18; TEMP 98.2; BMI 43.9
[2024-05-28] MEDS ORDERED: MAG HYDROX/AL HYDROX/SIMETH 30 ML UNIT-DOSE CUP ONE (01:54)
[2024-05-28] MEDS ORDERED: FAMOTIDINE 20 MG/50 ML IVPB 20 MG/50 ML MG IVPB ONE (01:55)
[2024-05-28] MEDS ORDERED: ACETAMINOPHEN INJECTION 100 ML ONE (01:55)
[2024-05-28] MEDS: ACETAMINOPHEN 1000 MG/100 ML BAG IVPB ONE (02:02)
[2024-05-28] MEDS: MAG HYDROX/AL HYDROX/SIMETH 30 ML UNIT-DOSE CUP PO ONE (02:02)
[2024-05-28] MEDS: FAMOTIDINE 20 MG/50 ML IVPB 20 MG/50 ML MG IVPB ONE (02:11)
[2024-05-28 02:20] LABS: BASO % 0.7 % (0-2.0); EOS % 3.1 % (0-4.5); HEMOGLOBIN 10.6 GM/dL (10.7-15.3); LYMPH % 25.2 % (8-40); MCH 23.2 pg (25.7-33.7); MCHC 31.1 g/dl (32.0-36.0); MEAN CELL VOLUME 74.5 fl (80-96); MEAN PLT VOLUME 8.1 fl (7.5-11.1); MONO % 6.9 % (3.8-10.2); NEUT % 64.1 % (42.8-82.8); PLATELET COUNT 239 10^3/uL (134-434); RBC 4.56 M/mm3 (3.60-5.2); WHITE BLOOD COUNT 4.8 K/mm3 (4.0-10.0)
[2024-05-28 02:30] LABS: INR 0.97 (0.83-1.09); PROTHROMBIN TIME (PATIENT) 11.2 SEC (9.7-13.0)
[2024-05-28 02:43] LABS: CALCIUM 9.1 mg/dL (8.5-10.1)
[2024-05-28 02:44] LABS: ALBUMIN 3.8 g/dl (3.4-5.0)
[2024-05-28 02:47] LABS: CREATININE 0.7 mg/dL (0.55-1.3)
[2024-05-28 02:49] LABS: BILIRUBIN,TOTAL 1.3 mg/dL (0.2-1)
[2024-05-28 02:59] LABS: PH,URINE 6.5 (5.0-8.0); URINE APPEARANCE CLEAR; URINE BILIRUBIN NEGATIVE (NEGATIVE); URINE COLOR YELLOW; URINE GLUCOSE (UA) NEGATIVE (NEGATIVE); URINE KETONE NEGATIVE (NEGATIVE); URINE LEUK ESTERASE NEGATIVE (NEGATIVE); URINE NITRITE NEGATIVE (NEGATIVE); URINE PROTEIN NEGATIVE (NEGATIVE); URINE UROBILINOGEN 0.2 mg/dL (0.2-1.0)
[2024-05-28] MEDS: SODIUM CHLORIDE 0.9% 500 ML INFUS.BAG IV ONE (04:06)
== END 2024-05-28 05:24 | disposition home or self-care (01) ==
LOC: JER 00:52
PROC: 3E033GC Introduction of Other Therapeutic Substance into Peripheral Vein, Percutaneous Approach (ICD-10-PCS; principal; 2024-05-28)
PROC: 3E033NZ Introduction of Analgesics, Hypnotics, Sedatives into Peripheral Vein, Percutaneous Approach (ICD-10-PCS; 2024-05-28)
DX: R10.12 Left upper quadrant pain (principal); M54.89 Other dorsalgia; Z20.822 Contact with and (suspected) exposure to COVID-19
CPT/HCPCS: 0241U-QW; 36415; 74175-TC; 80053; 81003; 83690; 84484; 84703; 85025; 85610; 86850; 86900; 86901; 87086; 99285-25; J0131; Q9967

== ENCOUNTER 2024-05-29 19:42 | Emergency (ER) | payer OTHER ==
[2024-05-29 19:53] VITALS: RESP 18; BMI 45.3
[2024-05-29] MEDS ORDERED: ACETAMINOPHEN INJECTION 100 ML ONE (22:03)
[2024-05-29 22:10] LABS: BASO % 0.6 % (0-2.0); EOS % 2.1 % (0-4.5); HEMATOCRIT 31.1 % (32.4-45.2); HEMOGLOBIN 9.9 GM/dL (10.7-15.3); MCH 23.4 pg (25.7-33.7); MCHC 31.8 g/dl (32.0-36.0); MEAN CELL VOLUME 73.5 fl (80-96); MONO % 7.8 % (3.8-10.2); NEUT % 59.5 % (42.8-82.8); PLATELET COUNT 203 10^3/uL (134-434); RBC 4.23 M/mm3 (3.60-5.2); RDW 17.4 % (11.6-15.6); WHITE BLOOD COUNT 4.5 K/mm3 (4.0-10.0)
[2024-05-29] MEDS: SODIUM CHLORIDE 0.9% 500 ML INFUS.BAG IV ONE (22:13)
[2024-05-29] MEDS: ACETAMINOPHEN 1000 MG/100 ML BAG IVPB ONE (22:13)
[2024-05-29 22:33] LABS: POTASSIUM 4.2 mmol/L (3.5-5.1)
[2024-05-29 22:35] LABS: ALBUMIN 3.8 g/dl (3.4-5.0); BLOOD UREA NITROGEN 7.8 mg/dL (7-18); CALCIUM 9.1 mg/dL (8.5-10.1)
[2024-05-29 22:38] LABS: CREATININE 0.6 mg/dL (0.55-1.3)
[2024-05-29 22:40] LABS: BILIRUBIN,TOTAL 1.2 mg/dL (0.2-1)
[2024-05-29 23:05] VITALS: BP 128/70; PULSE 78; TEMP 97.7
== END 2024-05-29 23:18 | disposition home or self-care (01) ==
LOC: JERFT 19:42
PROC: 3E033NZ Introduction of Analgesics, Hypnotics, Sedatives into Peripheral Vein, Percutaneous Approach (ICD-10-PCS; principal; 2024-05-29)
DX: R51.9 Headache, unspecified (principal); R20.2 Paresthesia of skin; Z20.822 Contact with and (suspected) exposure to COVID-19
CPT/HCPCS: 0241U-QW; 36415; 80053; 85025; 99284-25; J0131

== ENCOUNTER 2024-06-17 11:10 | Day surgery (SDC) | payer OTHER ==
[2024-06-17] MEDS: IRON SUCROSE INJECTION 200 MG in SODIUM CHLORIDE 100 ML IVPB ONE (12:00)
[2024-06-17 18:45] VITALS: BP 122/70; PULSE 68; RESP 18; TEMP 98.1
== END 2024-06-17 13:00 | disposition home or self-care (01) ==
LOC: FINFUSION 11:10 → FM/S 11:11 → FINFUSION 13:15
PROVIDERS: ATTEND Family Medicine
PROC: 3E033GC Introduction of Other Therapeutic Substance into Peripheral Vein, Percutaneous Approach (ICD-10-PCS; principal; 2024-06-17)
DX: D50.9 Iron deficiency anemia, unspecified (principal)
CPT/HCPCS: 96365; J1756

== ENCOUNTER 2024-06-24 11:30 | Day surgery (SDC) | payer OTHER ==
[2024-06-24 11:59] VITALS: BP 118/65; RESP 18; TEMP 98.3
[2024-06-24] MEDS: IRON SUCROSE INJECTION 200 MG in SODIUM CHLORIDE 100 ML IVPB ONE (12:22)
[2024-06-24 13:22] VITALS: PULSE 82
== END 2024-06-24 13:26 | disposition home or self-care (01) ==
LOC: FINFUSION 11:30 → FM/S 11:30 → FINFUSION 13:26
PROVIDERS: ATTEND Family Medicine
PROC: 3E033GC Introduction of Other Therapeutic Substance into Peripheral Vein, Percutaneous Approach (ICD-10-PCS; principal; 2024-06-24)
DX: D50.9 Iron deficiency anemia, unspecified (principal)
CPT/HCPCS: 96365; J1756

== ENCOUNTER 2024-07-01 11:21 | Day surgery (SDC) | payer OTHER ==
[2024-07-01] MEDS: IRON SUCROSE INJECTION 200 MG in SODIUM CHLORIDE 100 ML IVPB ONE (12:05)
[2024-07-01 13:06] VITALS: BP 119/67; PULSE 87; RESP 18
[2024-07-01 13:07] VITALS: TEMP 97.9
== END 2024-07-01 13:00 | disposition home or self-care (01) ==
LOC: FINFUSION 11:21 → FM/S 11:29 → FINFUSION 13:00
PROVIDERS: ATTEND Family Medicine
PROC: 3E033GC Introduction of Other Therapeutic Substance into Peripheral Vein, Percutaneous Approach (ICD-10-PCS; principal; 2024-07-01)
DX: D50.9 Iron deficiency anemia, unspecified (principal)
CPT/HCPCS: 96365; J1756

== ENCOUNTER → 2024-07-08 | Day surgery (SDC) | payer OTHER | END | disposition home or self-care (01) | LOC: FINFUSION 15:47 | PROVIDERS: ATTEND Family Medicine | PROC: 3E033GC Introduction of Other Therapeutic Substance into Peripheral Vein, Percutaneous Approach (ICD-10-PCS; principal; 2024-07-08) | DX: D50.9 Iron deficiency anemia, unspecified (principal) | CPT/HCPCS: 96365 ==

== ENCOUNTER 2024-07-15 13:17 | Day surgery (SDC) | payer OTHER ==
[2024-07-15] MEDS: IRON SUCROSE INJECTION 200 MG in SODIUM CHLORIDE 100 ML IVPB ONE (14:05)
[2024-07-15 15:01] VITALS: BP 130/80; PULSE 72; RESP 18; TEMP 98
== END 2024-07-15 15:02 | disposition home or self-care (01) ==
LOC: FINFUSION 13:17 → FM/S 13:18 → FINFUSION 15:02
PROVIDERS: ATTEND Family Medicine
PROC: 3E033GC Introduction of Other Therapeutic Substance into Peripheral Vein, Percutaneous Approach (ICD-10-PCS; principal; 2024-07-15)
DX: D50.9 Iron deficiency anemia, unspecified (principal)
CPT/HCPCS: 96365; J1756

== ENCOUNTER 2024-07-30 17:31 | Emergency (ER) | payer OTHER ==
[2024-07-30 17:43] VITALS: PULSE 92; RESP 18; TEMP 97.7; BMI 42.0
[2024-07-30 19:51] LABS: URINE APPEARANCE Clear; URINE BILIRUBIN Negative (NEGATIVE); URINE COLOR Yellow; URINE GLUCOSE (UA) Negative (NEGATIVE); URINE KETONE Negative (NEGATIVE); URINE LEUK ESTERASE Negative (NEGATIVE); URINE NITRITE Negative (NEGATIVE); URINE PROTEIN Negative (NEGATIVE); URINE UROBILINOGEN 0.2 mg/dL (0.2-1.0)
[2024-07-30 19:59] LABS: BASO % 0.3 % (0-2.0); EOS % 1.8 % (0-4.5); HEMATOCRIT 37.8 % (32.4-45.2); HEMOGLOBIN 12.3 GM/dL (10.7-15.3); LYMPH % 19.7 % (8-40); MCH 25.6 pg (25.7-33.7); MCHC 32.4 g/dl (32.0-36.0); MEAN CELL VOLUME 79.1 fl (80-96); MEAN PLT VOLUME 7.9 fl (7.5-11.1); MONO % 5.7 % (3.8-10.2); NEUT % 72.5 % (42.8-82.8); PLATELET COUNT 218 10^3/uL (134-434); RBC 4.78 M/mm3 (3.60-5.2); RDW 22.7 % (11.6-15.6); WHITE BLOOD COUNT 5.4 K/mm3 (4.0-10.0)
[2024-07-30 20:15] LABS: POTASSIUM 4.4 mmol/L (3.5-5.1)
[2024-07-30 20:17] LABS: CALCIUM 9.4 mg/dL (8.5-10.1)
[2024-07-30 20:18] LABS: BLOOD UREA NITROGEN 10.3 mg/dL (7-18)
[2024-07-30 20:21] LABS: CREATININE 0.7 mg/dL (0.55-1.3)
[2024-07-30 21:09] VITALS: BP 116/75
[2024-07-30 21:15] LABS: ANISOCYTOSIS 3+; MACROCYTOSIS 0; OVALOCYTE 1+
== END 2024-07-30 21:09 | disposition home or self-care (01) ==
LOC: JER 17:31
DX: J01.90 Acute sinusitis, unspecified (principal); Z20.822 Contact with and (suspected) exposure to COVID-19
CPT/HCPCS: 0241U-QW; 36415; 80048; 81003; 85025; 87086; 93005; 93010; 99284-25

== ENCOUNTER 2024-08-20 20:38 | Emergency (ER) | payer OTHER ==
[2024-08-20 20:43] VITALS: BP 131/69; PULSE 84; RESP 20; TEMP 98.3; BMI 43.9
[2024-08-20] MEDS ORDERED: KETOCONAZOLE 2% CREAM - 60GM TUBE TP STA (21:24)
[2024-08-20] MEDS ORDERED: SULFAMETHOXAZOLE/TRIMETHOPRIM 800MG/160MG D.S. TABLET ONE (21:33)
[2024-08-20] MEDS: SULFAMETHOXAZOLE/TRIMETHOPRIM 800MG/160MG D.S. TABLET PO ONE (21:37)
[2024-08-20] MEDS: KETOCONAZOLE 2% TOPICAL CREAM 15 GM TUBE TP STA (21:43)
== END 2024-08-20 21:44 | disposition home or self-care (01) ==
LOC: JERFT 20:38
DX: L30.4 Erythema intertrigo (principal)
CPT/HCPCS: 99283-25